=== PATIENT | female | born 1980 | race Caucasian/White ===

== ENCOUNTER → 2023-09-24 10:37 | Outpatient (REF) | payer BC, SELFPAY | LOC: HWWDC 10:37 | PROVIDERS: ATTENDING PHYSICIAN Internal Medicine; REFERRING PHYSICIAN Nurse Practitioner Adult Health | DX: Z12.31 Encounter for screening mammogram for malignant neoplasm of breast (principal) | CPT/HCPCS: 77063; 77067 ==

== ENCOUNTER → 2023-11-11 12:47 | Outpatient (REF) | payer BC, SELFPAY | LOC: WDC 12:47 | PROVIDERS: ATTENDING PHYSICIAN Internal Medicine | DX: R92.333 Mammographic heterogeneous density, bilateral breasts (principal) | CPT/HCPCS: 76641 ==

== ENCOUNTER → 2024-11-29 11:13 | Outpatient (REF) | payer BC, SELFPAY | LOC: HWWDC 11:13 | PROVIDERS: ATTENDING PHYSICIAN Nurse Practitioner Adult Health; FAMILY PHYSICIAN Internal Medicine | DX: Z12.31 Encounter for screening mammogram for malignant neoplasm of breast (principal) | CPT/HCPCS: 77063; 77067 ==

== ENCOUNTER → 2024-12-13 10:03 | Outpatient (REF) | payer BC, SELFPAY | LOC: WDC 10:03 | PROVIDERS: ATTENDING PHYSICIAN Nurse Practitioner Adult Health; FAMILY PHYSICIAN Internal Medicine | DX: R92.8 Other abnormal and inconclusive findings on diagnostic imaging of breast (principal) | CPT/HCPCS: 76642 ==